=== PATIENT | female | born 1940 | race Caucasian/White ===

== ENCOUNTER 2016-11-01 09:16 | Inpatient (IN) | payer OTHER ==
[2016-11-01 09:39] LABS: BASOPHILS % (AUTO) 1 % (0-3); EOSINOPHILS % (AUTO) 1 % (0-9); HEMATOCRIT 34 % (35-47); MEAN CORPUSCULAR HGB CONC 34.8 gm/dl (32.0-36.0); MEAN CORPUSCULAR VOLUME 88 fL (81-99); MONOCYTES % (AUTO) 7.3 % (0-12); NEUTROPHILS % (AUTO) 84.9 % (37-80)
[2016-11-01] MEDS ORDERED: METOLAZONE 2.5 MG TAB PO ONE (09:41)
[2016-11-01] MEDS ORDERED: MORPHINE SULFATE 10 MG/ML SOL IV ONE (09:41)
[2016-11-01] MEDS ORDERED: FUROSEMIDE 40 MG SOL IV ONE (09:41)
[2016-11-01] MEDS ORDERED: FUROSEMIDE 40 MG SOL ONE (09:43)
[2016-11-01 09:51] LABS: ALBUMIN 3.1 gm/dl (3.4-5.0); CALCIUM 9.3 mg/dl (8.5-10.1); POTASSIUM 4.5 mMol/L (3.5-5.1)
[2016-11-01] MEDS ORDERED: MORPHINE SULFATE 10 MG/ML SOL ONE (09:57)
[2016-11-01] MEDS ORDERED: ALBUTEROL/IPRATROPIUM 1 VIAL SOL ONE (09:57)
[2016-11-01] MEDS ORDERED: ALBUTEROL/IPRATROPIUM 1 VIAL SOL INH ONE (09:57)
[2016-11-01 12:34] LABS: APPEARANCE,URINE Slightly Cloudy; BILIRUBIN,URINE NEGATIVE (NEGATIVE); GLUCOSE, URINE (UA) TRACE (NEGATIVE); KETONES,URINE NEGATIVE (NEGATIVE); LEUKOCYTE ESTERASE ,URINE NEGATIVE (NEGATIVE); NITRATE,URINE NEGATIVE (NEGATIVE); OCCULT BLOOD,URINE 1+ (NEG-TRACE); UROBILINOGEN,URINE 0.2 (0.2-1.0 EU)
[2016-11-01 12:52] LABS: COLOR,URINE YELLOW; RBC,URINE 0-1 (0-3AV/HPF); WBC,URINE 0-3 (0-5AV/HPF)
[2016-11-01 12:55] VITALS: BP 118/71; PULSE 102; O2SAT 97
[2016-11-01 13:43] VITALS: RESP 20; TEMP 98.4
[2016-11-01] MEDS ORDERED: HEPARIN SODIUM 5000 U/ML SOL IV ONE (14:21)
[2016-11-01] MEDS ORDERED: HEPARIN PREMIX 25,000 U/250 ML SOL IV SCH (14:30)
== END 2016-11-01 15:20 | disposition short-term general hospital (02) | DRG 293 ==
LOC: ED 09:16 → ACUTE CARE 12:24 → UNDOADMIN 12:24 → ACUTE CARE 12:50
PROVIDERS: ADMIT Family Medicine; ATTEND Family Medicine
DX: I50.9 Heart failure, unspecified (principal); I25.10 Atherosclerotic heart disease of native coronary artery without angina pectoris
CPT/HCPCS: 36415; 71010; 73130; 80053; 81001; 83880; 84484; 85025; 85378; 85610; 85730; 93005; 94640; 96374; 96375; 99284; 99285; J1644; J1940; J2270; J7620

== ENCOUNTER 2016-11-07 09:58 | Inpatient (IN) | payer OTHER ==
[2016-11-07] MEDS ORDERED: ALBUTEROL HFA 60 PUFF/INHALER INH PRN (17:05)
[2016-11-07] MEDS: DOCUSATE SODIUM 100 MG SGL PO SCH (20:47)
[2016-11-07] MEDS: AMIODARONE 200 MG TAB PO SCH (20:47)
[2016-11-07] MEDS: PRAVASTATIN SODIUM 20 MG TAB PO SCH (20:47)
[2016-11-07] MEDS: LEVEMIR PEN SC SCH (20:47)
[2016-11-07] MEDS: METOPROLOL SUCCINATE 50 MG ER TAB PO SCH (20:47)
[2016-11-08] MEDS: LOSARTAN POTASSIUM 50 MG TAB PO SCH (09:09)
[2016-11-08] MEDS: ASPIRIN EC 81 MG PO SCH (09:09)
[2016-11-08] MEDS: DOCUSATE SODIUM 100 MG SGL PO SCH ×2 (09:09→20:14)
[2016-11-08] MEDS: AMIODARONE 200 MG TAB PO SCH ×2 (09:09→20:13)
[2016-11-08] MEDS: GLIPIZIDE 5 MG TAB PO SCH (09:09)
[2016-11-08] MEDS: POLYETHYLENE GLYCOL 17 GM/1 TBS PDS PO SCH (09:09)
[2016-11-08] MEDS: METOPROLOL SUCCINATE 50 MG ER TAB PO SCH ×2 (09:09→20:14)
[2016-11-08] MEDS: POTASSIUM CHLORIDE 10 MEQ TER PO SCH (09:09)
[2016-11-08] MEDS: FUROSEMIDE 20 MG TAB PO SCH (09:09)
[2016-11-08] MEDS: MELOXICAM 15 MG TAB PO SCH ×2 (10:31→12:02)
[2016-11-08] MEDS: NOVOLOG FLEXPEN SC SCH ×2 (18:22→20:03)
[2016-11-08] MEDS: LEVEMIR PEN SC SCH (20:05)
[2016-11-08] MEDS: PRAVASTATIN SODIUM 20 MG TAB PO SCH (20:13)
[2016-11-09] MEDS: DOCUSATE SODIUM 100 MG SGL PO SCH ×2 (08:30→20:43)
[2016-11-09] MEDS: AMIODARONE 200 MG TAB PO SCH ×2 (08:30→20:40)
[2016-11-09] MEDS: GLIPIZIDE 5 MG TAB PO SCH (08:31)
[2016-11-09] MEDS: LOSARTAN POTASSIUM 50 MG TAB PO SCH (08:31)
[2016-11-09] MEDS: POTASSIUM CHLORIDE 10 MEQ TER PO SCH (08:31)
[2016-11-09] MEDS: FUROSEMIDE 20 MG TAB PO SCH (08:32)
[2016-11-09] MEDS: POLYETHYLENE GLYCOL 17 GM/1 TBS PDS PO SCH (08:32)
[2016-11-09] MEDS: MELOXICAM 15 MG TAB PO SCH (08:32)
[2016-11-09] MEDS: ASPIRIN EC 81 MG PO SCH (08:33)
[2016-11-09] MEDS: METOPROLOL SUCCINATE 50 MG ER TAB PO SCH ×2 (08:33→20:41)
[2016-11-09] MEDS: NOVOLOG FLEXPEN SC SCH ×4 (08:36→20:47)
[2016-11-09] MEDS: PRAVASTATIN SODIUM 20 MG TAB PO SCH (20:41)
[2016-11-09] MEDS: LEVEMIR PEN SC SCH (20:47)
[2016-11-10] MEDS: NOVOLOG FLEXPEN SC SCH (08:00)
[2016-11-10] MEDS: AMIODARONE 200 MG TAB PO SCH ×2 (08:06→21:52)
[2016-11-10] MEDS: LOSARTAN POTASSIUM 50 MG TAB PO SCH (08:07)
[2016-11-10] MEDS: ASPIRIN EC 81 MG PO SCH (08:07)
[2016-11-10] MEDS: DOCUSATE SODIUM 100 MG SGL PO SCH ×2 (08:07→21:19)
[2016-11-10] MEDS: POTASSIUM CHLORIDE 10 MEQ TER PO SCH (08:08)
[2016-11-10] MEDS: GLIPIZIDE 5 MG TAB PO SCH (08:08)
[2016-11-10] MEDS: MELOXICAM 15 MG TAB PO SCH (08:09)
[2016-11-10] MEDS: POLYETHYLENE GLYCOL 17 GM/1 TBS PDS PO SCH (08:09)
[2016-11-10] MEDS: FUROSEMIDE 20 MG TAB PO SCH (08:09)
[2016-11-10] MEDS: METOPROLOL SUCCINATE 50 MG ER TAB PO SCH ×2 (08:10→21:53)
[2016-11-10] MEDS: NOVOLOG 70/30 FLEXPEN SC SCH ×2 (09:59→17:42)
[2016-11-10] MEDS ORDERED: NOVOLOG FLEXPEN SC ONE (12:00)
[2016-11-10] MEDS: PRAVASTATIN SODIUM 20 MG TAB PO SCH (21:52)
[2016-11-11] MEDS: AMIODARONE 200 MG TAB PO SCH ×2 (08:31→20:33)
[2016-11-11] MEDS: LOSARTAN POTASSIUM 50 MG TAB PO SCH (08:32)
[2016-11-11] MEDS: DOCUSATE SODIUM 100 MG SGL PO SCH ×2 (08:32→20:34)
[2016-11-11] MEDS: POTASSIUM CHLORIDE 10 MEQ TER PO SCH (08:32)
[2016-11-11] MEDS: ASPIRIN EC 81 MG PO SCH (08:32)
[2016-11-11] MEDS: FUROSEMIDE 20 MG TAB PO SCH (08:33)
[2016-11-11] MEDS: POLYETHYLENE GLYCOL 17 GM/1 TBS PDS PO SCH (08:33)
[2016-11-11] MEDS: MELOXICAM 15 MG TAB PO SCH (08:33)
[2016-11-11] MEDS: METOPROLOL SUCCINATE 50 MG ER TAB PO SCH ×2 (08:34→20:34)
[2016-11-11] MEDS: NOVOLOG 70/30 FLEXPEN SC SCH ×2 (08:34→17:29)
[2016-11-11] MEDS: PRAVASTATIN SODIUM 20 MG TAB PO SCH (20:34)
[2016-11-12] MEDS: AMIODARONE 200 MG TAB PO SCH ×2 (08:26→21:41)
[2016-11-12] MEDS: FUROSEMIDE 20 MG TAB PO SCH (08:26)
[2016-11-12] MEDS: ASPIRIN EC 81 MG PO SCH (08:26)
[2016-11-12] MEDS: POTASSIUM CHLORIDE 10 MEQ TER PO SCH (08:26)
[2016-11-12] MEDS: DOCUSATE SODIUM 100 MG SGL PO SCH ×2 (08:26→21:41)
[2016-11-12] MEDS: POLYETHYLENE GLYCOL 17 GM/1 TBS PDS PO SCH (08:27)
[2016-11-12] MEDS: LOSARTAN POTASSIUM 50 MG TAB PO SCH (08:27)
[2016-11-12] MEDS: NOVOLOG 70/30 FLEXPEN SC SCH ×2 (08:28→17:21)
[2016-11-12] MEDS: MELOXICAM 15 MG TAB PO SCH (08:28)
[2016-11-12] MEDS: METOPROLOL SUCCINATE 50 MG ER TAB PO SCH ×2 (08:29→21:41)
[2016-11-12 08:43] VITALS: RESP 16; TEMP 97.9
[2016-11-12] MEDS: PRAVASTATIN SODIUM 20 MG TAB PO SCH (21:40)
[2016-11-13 07:35] VITALS: BP 148/68; PULSE 73; O2SAT 93
[2016-11-13] MEDS: AMIODARONE 200 MG TAB PO SCH (09:13)
[2016-11-13] MEDS: ASPIRIN EC 81 MG PO SCH (09:13)
[2016-11-13] MEDS: POLYETHYLENE GLYCOL 17 GM/1 TBS PDS PO SCH (09:13)
[2016-11-13] MEDS: DOCUSATE SODIUM 100 MG SGL PO SCH (09:13)
[2016-11-13] MEDS: LOSARTAN POTASSIUM 50 MG TAB PO SCH (09:14)
[2016-11-13] MEDS: FUROSEMIDE 20 MG TAB PO SCH (09:14)
[2016-11-13] MEDS: POTASSIUM CHLORIDE 10 MEQ TER PO SCH (09:14)
[2016-11-13] MEDS: MELOXICAM 15 MG TAB PO SCH (09:15)
[2016-11-13] MEDS: METOPROLOL SUCCINATE 50 MG ER TAB PO SCH (09:15)
[2016-11-13] MEDS: NOVOLOG 70/30 FLEXPEN SC SCH (09:17)
[2016-11-13] MEDS ORDERED: PNEUMOCOCCAL VACCINE 0.5 ML SOL IM ONE (14:23)
[2016-11-27] MEDS ORDERED: AMIODARONE 200 MG TAB PO SCH (09:00)
== END 2016-11-13 15:05 | disposition home or self-care (01) | DRG 292 ==
LOC: ACUTE CARE 15:59
PROVIDERS: ADMIT Family Medicine; ATTEND Family Medicine
PROC: F01ZDFZ Gait and/or Balance Assessment using Assistive, Adaptive, Supportive or Protective Equipment (ICD-10-PCS; principal; 2016-11-08)
PROC: F01ZBZZ Bed Mobility Assessment (ICD-10-PCS; 2016-11-08)
PROC: F01ZCZZ Transfer Assessment (ICD-10-PCS; 2016-11-08)
PROC: F02Z1ZZ Dressing Assessment (ICD-10-PCS; 2016-11-08)
PROC: F02Z0ZZ Bathing/Showering Assessment (ICD-10-PCS; 2016-11-08)
PROC: F02Z4ZZ Home Management Assessment (ICD-10-PCS; 2016-11-08)
DX: I50.22 Chronic systolic (congestive) heart failure (principal); I47.2 Ventricular tachycardia; I25.10 Atherosclerotic heart disease of native coronary artery without angina pectoris; E11.9 Type 2 diabetes mellitus without complications; Z79.4 Long term (current) use of insulin; I25.2 Old myocardial infarction; Z95.0 Presence of cardiac pacemaker
CPT/HCPCS: 82962; 90732; J1815

== ENCOUNTER 2016-12-21 06:36 | Emergency (ER) | payer OTHER ==
[2016-12-21 08:52] VITALS: BP 158/68; PULSE 92; RESP 20; TEMP 98.1; O2SAT 98
== END 2016-12-21 08:37 | disposition home or self-care (01) | DRG 392 ==
LOC: ED 06:36
DX: K59.00 Constipation, unspecified (principal)
CPT/HCPCS: 74020; 99282

== ENCOUNTER 2017-09-02 12:57 | Emergency (ER) | payer OTHER ==
[2017-09-02 13:06] VITALS: RESP 20; TEMP 97.1
[2017-09-02] MEDS ORDERED: ONDANSETRON HCL 4 MG/2 ML SOL IV ONE (13:24)
[2017-09-02] MEDS ORDERED: SODIUM CHLORIDE 0.9% 1000ML 1,000 ML IV SCH (13:30)
[2017-09-02 13:32] LABS: BASOPHILS % (AUTO) 1 % (0-3); EOSINOPHILS % (AUTO) 1 % (0-9); HEMATOCRIT 35 % (35-47); HEMOGLOBIN 11.6 gm/dl (12.0-15.5); LYMPHOCYTES % (AUTO) 15.4 % (10-50); MEAN CORPUSCULAR HEMOGLOBIN 30.3 pg (27.0-32.0); MEAN CORPUSCULAR HGB CONC 33.2 gm/dl (32.0-36.0); MEAN CORPUSCULAR VOLUME 91 fL (81-99); MONOCYTES % (AUTO) 7.1 % (0-12); NEUTROPHILS % (AUTO) 75.6 % (37-80)
[2017-09-02] MEDS ORDERED: ONDANSETRON HCL 4 MG/2 ML SOL ONE (13:34)
[2017-09-02 13:45] VITALS: PULSE 68
[2017-09-02 13:50] LABS: ALBUMIN 3.1 gm/dl (3.4-5.0); BILIRUBIN,TOTAL 0.5 mg/dl (0.2-1.0); CALCIUM 8.1 mg/dl (8.5-10.1); CARBON DIOXIDE 28.8 mEq/L (21-32); CREATININE 1.38 mg/dl (0.60-1.00); POTASSIUM 5.1 mMol/L (3.5-5.1); TOTAL PROTEIN 7.3 gm/dl (6.4-8.2)
[2017-09-02 17:20] VITALS: BP 124/48; O2SAT 94
== END 2017-09-02 16:27 | disposition home or self-care (01) | DRG 392 ==
LOC: ED 12:57
DX: K59.01 Slow transit constipation (principal); I50.9 Heart failure, unspecified; E83.51 Hypocalcemia; E88.09 Other disorders of plasma-protein metabolism, not elsewhere classified; E87.1 Hypo-osmolality and hyponatremia; R11.0 Nausea
CPT/HCPCS: 71045; 74019; 80053; 83880; 85025; 99285; J2405

== ENCOUNTER 2017-11-01 12:15 | Inpatient (IN) | payer OTHER ==
[2017-11-01] MEDS ORDERED: ALBUTEROL NEB SOL 2.5MG/3ML 1 VIAL SOL NEB PRN (12:19)
[2017-11-01] MEDS: SODIUM CHLORIDE 0.9% FLUSH 10 ML SOL IV SCH ×2 (13:00→21:20)
[2017-11-01] MEDS: ALBUTEROL/IPRATROPIUM 1 VIAL SOL INH SCH ×2 (13:25→19:07)
[2017-11-01] MEDS ORDERED: MECLIZINE HYDROCHLORIDE 12.5 MG TAB PO PRN (14:50)
[2017-11-01] MEDS ORDERED: SENNOSIDES A AND B 8.6 MG TAB PO PRN (14:50)
[2017-11-01] MEDS ORDERED: AZITHROMYCIN 250 MG TAB PO ONE (14:53)
[2017-11-01] MEDS ORDERED: LEVOFLOXACIN 500 MG (PREMIX) 500 MG/100 ML SOL IV SCH (15:00)
[2017-11-01] MEDS ORDERED: CEFTRIAXONE 1 GM (PREMIX) 1 GM/50 ML SOL IV SCH (15:00)
[2017-11-01] MEDS: SOLUMEDROL 125 MG/2 ML 125 MG/2 ML PDS IV SCH ×2 (15:08→21:19)
[2017-11-01] MEDS: FUROSEMIDE 40 MG SOL IV SCH ×2 (15:08→21:22)
[2017-11-01] MEDS ORDERED: CEFTRIAXONE 1 GM PDS ONE (15:17)
[2017-11-01] MEDS: POTASSIUM CHLORIDE 10 MEQ TER PO SCH (21:16)
[2017-11-01] MEDS: ASPIRIN EC 81 MG PO SCH (21:16)
[2017-11-01] MEDS: HUMALOG PEN 100 U/ML SC SCH (22:30)
[2017-11-02] MEDS: ALBUTEROL/IPRATROPIUM 1 VIAL SOL INH SCH ×4 (00:30→18:28)
[2017-11-02] MEDS: SODIUM CHLORIDE 0.9% FLUSH 10 ML SOL IV SCH ×3 (04:30→21:00)
[2017-11-02] MEDS: SOLUMEDROL 125 MG/2 ML 125 MG/2 ML PDS IV SCH ×4 (07:29→20:59)
[2017-11-02] MEDS: HUMALOG PEN 100 U/ML SC SCH ×5 (08:20→22:05)
[2017-11-02] MEDS: LEVEMIR PEN SC SCH (08:24)
[2017-11-02] MEDS ORDERED: METOPROLOL SUCCINATE 50 MG ER TAB ONE (08:29)
[2017-11-02] MEDS: LOSARTAN POTASSIUM 50 MG TAB PO SCH (08:34)
[2017-11-02] MEDS: GLIPIZIDE 5 MG TAB PO SCH (08:34)
[2017-11-02] MEDS: AZITHROMYCIN 250 MG TAB PO SCH (08:34)
[2017-11-02] MEDS: CETIRIZINE HYDROCHLORIDE 10 MG TAB PO SCH (08:34)
[2017-11-02] MEDS: METOPROLOL SUCCINATE 25 MG TAB.ER.24H PO SCH (08:35)
[2017-11-02] MEDS ORDERED: GLIPIZIDE 10 MG PO SCH (09:00)
[2017-11-02] MEDS: FUROSEMIDE 40 MG SOL IV SCH ×2 (09:58→15:01)
[2017-11-02] MEDS: FLUTICASONE PROPIONATE SPR NAS SCH (10:44)
[2017-11-02] MEDS ORDERED: CEFTRIAXONE 1 GM PDS ONE (13:58)
[2017-11-02] MEDS ORDERED: CEFTRIAXONE 1 GM PDS 1 GM in SODIUM CHLORIDE 0.9% 50 ML 50 ML IV ONE (14:01)
[2017-11-02] MEDS: ASPIRIN EC 81 MG PO SCH (21:04)
[2017-11-02] MEDS: POTASSIUM CHLORIDE 10 MEQ TER PO SCH (21:04)
[2017-11-03] MEDS: ALBUTEROL/IPRATROPIUM 1 VIAL SOL INH SCH ×7 (00:34→20:30)
[2017-11-03] MEDS: SOLUMEDROL 125 MG/2 ML 125 MG/2 ML PDS IV SCH ×2 (02:12→11:05)
[2017-11-03] MEDS: SODIUM CHLORIDE 0.9% FLUSH 10 ML SOL IV SCH ×4 (04:00→20:28)
[2017-11-03] MEDS: FUROSEMIDE 40 MG SOL IV SCH ×2 (06:56→15:45)
[2017-11-03 07:56] LABS: CALCIUM 9.1 mg/dl (8.5-10.1); CARBON DIOXIDE 29.7 mEq/L (21-32); CREATININE 1.31 mg/dl (0.60-1.00); POTASSIUM 4.2 mMol/L (3.5-5.1)
[2017-11-03 08:10] LABS: HEMATOCRIT 35 % (35-47); MEAN CORPUSCULAR HEMOGLOBIN 29.6 pg (27.0-32.0); MEAN CORPUSCULAR HGB CONC 33.8 gm/dl (32.0-36.0); MEAN CORPUSCULAR VOLUME 88 fL (81-99)
[2017-11-03 08:41] LABS: ANISOCYTOSIS SLIGHT; BAND NEUTROPHILS % (MANUAL) 0 %; BASOPHILS % (MANUAL) 0 % (0-3); EOSINOPHILS % (MANUAL) 0 % (0-9); LYMPHOCYTES % (MANUAL) 5 % (10-50); METAMYELOCYTES%(MANUAL) 1; MONOCYTES % (MANUAL) 5 % (0-12); NEUTROPHILS % (MANUAL) 89 % (37-80)
[2017-11-03] MEDS: HUMALOG PEN 100 U/ML SC SCH ×4 (08:50→20:32)
[2017-11-03] MEDS: LEVEMIR PEN SC SCH (08:54)
[2017-11-03] MEDS ORDERED: METOPROLOL SUCCINATE 50 MG ER TAB ONE (09:03)
[2017-11-03] MEDS: GLIPIZIDE 5 MG TAB PO SCH (09:07)
[2017-11-03] MEDS: LOSARTAN POTASSIUM 50 MG TAB PO SCH (09:07)
[2017-11-03] MEDS: METOPROLOL SUCCINATE 25 MG TAB.ER.24H PO SCH (09:08)
[2017-11-03] MEDS: AZITHROMYCIN 250 MG TAB PO SCH (09:09)
[2017-11-03] MEDS: CETIRIZINE HYDROCHLORIDE 10 MG TAB PO SCH (09:10)
[2017-11-03] MEDS: FLUTICASONE PROPIONATE SPR NAS SCH (09:14)
[2017-11-03] MEDS: PREDNISONE 20 MG TAB PO SCH (09:54)
[2017-11-03] MEDS ORDERED: POLYETHYLENE GLYCOL 17 GM/1 TBS PDS PO PRN (16:27)
[2017-11-03] MEDS: ASPIRIN EC 81 MG PO SCH (20:29)
[2017-11-03] MEDS: POTASSIUM CHLORIDE 10 MEQ TER PO SCH (20:29)
[2017-11-04] MEDS: FUROSEMIDE 40 MG SOL IV SCH (06:26)
[2017-11-04] MEDS: SODIUM CHLORIDE 0.9% FLUSH 10 ML SOL IV SCH (06:26)
[2017-11-04 07:25] LABS: CALCIUM 8.8 mg/dl (8.5-10.1); CREATININE 1.22 mg/dl (0.60-1.00); POTASSIUM 4.5 mMol/L (3.5-5.1)
[2017-11-04] MEDS: HUMALOG PEN 100 U/ML SC SCH (07:33)
[2017-11-04 07:44] VITALS: BP 138/74; TEMP 97.8
[2017-11-04] MEDS ORDERED: METOPROLOL SUCCINATE 50 MG TER PO SCH (09:00)
[2017-11-04] MEDS: GLIPIZIDE 5 MG TAB PO SCH (09:20)
[2017-11-04] MEDS: LEVEMIR PEN SC SCH (09:21)
[2017-11-04] MEDS: AZITHROMYCIN 250 MG TAB PO SCH (09:22)
[2017-11-04] MEDS: LOSARTAN POTASSIUM 50 MG TAB PO SCH (09:22)
[2017-11-04] MEDS: CETIRIZINE HYDROCHLORIDE 10 MG TAB PO SCH (09:22)
[2017-11-04] MEDS: PREDNISONE 20 MG TAB PO SCH (09:22)
[2017-11-04] MEDS: FLUTICASONE PROPIONATE SPR NAS SCH (09:22)
[2017-11-04] MEDS: ALBUTEROL/IPRATROPIUM 1 VIAL SOL INH SCH (09:25)
[2017-11-04 11:32] VITALS: PULSE 87; RESP 20; O2SAT 92
== END 2017-11-04 11:25 | disposition home or self-care (01) | DRG 206 ==
LOC: ACUTE CARE 12:20
PROVIDERS: ADMIT Family Medicine; ATTEND Family Medicine
DX: R09.02 Hypoxemia (principal); I50.9 Heart failure, unspecified; J90 Pleural effusion, not elsewhere classified; E11.9 Type 2 diabetes mellitus without complications; J44.9 Chronic obstructive pulmonary disease, unspecified; Z79.4 Long term (current) use of insulin
CPT/HCPCS: 36415; 80048; 82962; 83880; 84484; 85007; 85027; 93005; 93012; 94150; 94640; 94664; 94762; 99222; 99232; J0696; J1815; J1940; J2930; J7613; A9270-GY

== ENCOUNTER 2018-07-25 02:53 | Emergency (ER) | payer OTHER ==
[2018-07-25] MEDS ORDERED: ALBUTEROL/IPRATROPIUM 1 VIAL SOL INH ONE ×2 (03:00→03:56)
[2018-07-25] MEDS ORDERED: ALBUTEROL/IPRATROPIUM 1 VIAL SOL ONE ×2 (03:01→03:59)
[2018-07-25 03:14] VITALS: RESP 24; TEMP 96.4
[2018-07-25] MEDS ORDERED: AZITHROMYCIN 250 MG TAB PO ONE (03:57)
[2018-07-25] MEDS ORDERED: SOLUMEDROL 125 MG/2 ML 125 MG/2 ML PDS IM ONE (03:57)
[2018-07-25] MEDS ORDERED: SOLUMEDROL 125 MG/2 ML 125 MG/2 ML PDS ONE (03:59)
[2018-07-25] MEDS ORDERED: AZITHROMYCIN 250 MG TAB ONE (04:01)
[2018-07-25 04:11] VITALS: PULSE 82; O2SAT 90
[2018-07-25 04:28] VITALS: BP 129/77
== END 2018-07-25 04:34 | disposition home or self-care (01) | DRG 192 ==
LOC: ED 02:53
DX: J44.1 Chronic obstructive pulmonary disease with (acute) exacerbation (principal); E11.9 Type 2 diabetes mellitus without complications; I10 Essential (primary) hypertension; I25.10 Atherosclerotic heart disease of native coronary artery without angina pectoris; Z95.0 Presence of cardiac pacemaker; R06.02 Shortness of breath
CPT/HCPCS: 36415; 71045; 80053; 83880; 84484; 85025; 99284; J2930; A9270-GY

== ENCOUNTER 2018-07-25 11:12 | Inpatient (IN) | payer OTHER ==
[2018-07-25 03:42] LABS: BASOPHILS % (AUTO) 1 % (0-3); EOSINOPHILS % (AUTO) 3 % (0-9); HEMATOCRIT 35 % (35-47); HEMOGLOBIN 11.6 gm/dl (12.0-15.5); LYMPHOCYTES % (AUTO) 11.5 % (10-50); MEAN CORPUSCULAR HGB CONC 33.5 gm/dl (32.0-36.0); MEAN CORPUSCULAR VOLUME 96 fL (81-99); MONOCYTES % (AUTO) 9.6 % (0-12); NEUTROPHILS % (AUTO) 75.4 % (37-80)
[2018-07-25 03:43] LABS: ALBUMIN 3.5 gm/dl (3.4-5.0); BILIRUBIN,TOTAL 0.4 mg/dl (0.2-1.0); CALCIUM 8.2 mg/dl (8.5-10.1); CARBON DIOXIDE 31.9 mEq/L (21-32); CREATININE 1.17 mg/dl (0.60-1.00); POTASSIUM 4.2 mMol/L (3.5-5.1); TOTAL PROTEIN 7.4 gm/dl (6.4-8.2)
[2018-07-25] MEDS ORDERED: ALBUTEROL/IPRATROPIUM 1 VIAL SOL ONE ×2 (11:24→12:39)
[2018-07-25] MEDS ORDERED: SOLUMEDROL 125 MG/2 ML 125 MG/2 ML PDS ONE (11:24)
[2018-07-25] MEDS ORDERED: SOLUMEDROL 125 MG/2 ML 125 MG/2 ML PDS IV ONE (11:26)
[2018-07-25] MEDS ORDERED: ALBUTEROL/IPRATROPIUM 1 VIAL SOL INH ONE ×2 (11:26→12:33)
[2018-07-25] MEDS: SODIUM CHLORIDE 0.9% FLUSH 10 ML SOL IV PRN ×2 (12:05→18:52)
[2018-07-25] MEDS ORDERED: FUROSEMIDE 20mg SOL IV ONE (12:33)
[2018-07-25] MEDS ORDERED: FUROSEMIDE 20mg SOL ONE (12:39)
[2018-07-25] MEDS ORDERED: ALBUTEROL HFA 60 PUFF/INHALER INH PRN (14:11)
[2018-07-25] MEDS: SOLUMEDROL 125 MG/2 ML 125 MG/2 ML PDS IV SCH ×2 (18:51→23:17)
[2018-07-25] MEDS ORDERED: ASPIRIN EC 81 MG PO SCH (21:00)
[2018-07-25] MEDS ORDERED: POTASSIUM CHLORIDE 10 MEQ TER PO SCH (21:00)
[2018-07-25] MEDS: NOVOLOG FLEXPEN SC SCH (21:28)
[2018-07-25] MEDS: ALBUTEROL NEB SOL 2.5MG/3ML 1 VIAL SOL INH PRN (23:15)
[2018-07-26] MEDS: SOLUMEDROL 125 MG/2 ML 125 MG/2 ML PDS IV SCH (06:12)
[2018-07-26] MEDS: SODIUM CHLORIDE 0.9% FLUSH 10 ML SOL IV PRN ×2 (06:12→10:27)
[2018-07-26 07:39] LABS: BASOPHILS % (AUTO) 0 % (0-3); EOSINOPHILS % (AUTO) 0 % (0-9); HEMATOCRIT 35 % (35-47); HEMOGLOBIN 11.5 gm/dl (12.0-15.5); LYMPHOCYTES % (AUTO) 4.3 % (10-50); MEAN CORPUSCULAR HEMOGLOBIN 31.5 pg (27.0-32.0); MEAN CORPUSCULAR HGB CONC 32.7 gm/dl (32.0-36.0); MEAN CORPUSCULAR VOLUME 96 fL (81-99); NEUTROPHILS % (AUTO) 92.4 % (37-80)
[2018-07-26 07:46] VITALS: BP 142/74; TEMP 97.9
[2018-07-26 07:50] LABS: CALCIUM 8.4 mg/dl (8.5-10.1); CREATININE 1.18 mg/dl (0.60-1.00); POTASSIUM 4.3 mMol/L (3.5-5.1)
[2018-07-26] MEDS: ALBUTEROL NEB SOL 2.5MG/3ML 1 VIAL SOL INH PRN (07:55)
[2018-07-26 07:59] VITALS: RESP 24
[2018-07-26] MEDS: NOVOLOG FLEXPEN SC SCH (08:21)
[2018-07-26] MEDS ORDERED: GLIPIZIDE 5 MG TAB PO SCH (09:00)
[2018-07-26] MEDS ORDERED: AZITHROMYCIN 500 MG PDS IV ONE (09:00)
[2018-07-26] MEDS ORDERED: LOSARTAN POTASSIUM 50 MG TAB PO SCH (09:00)
[2018-07-26] MEDS ORDERED: LEVEMIR PEN SC SCH (09:00)
[2018-07-26] MEDS ORDERED: AMIODARONE 200 MG TAB PO SCH (09:00)
[2018-07-26] MEDS ORDERED: FUROSEMIDE 20 MG TAB PO SCH (09:00)
[2018-07-26] MEDS ORDERED: FUROSEMIDE 20mg SOL IV ONE (09:00)
[2018-07-26] MEDS ORDERED: ALBUTEROL/IPRATROPIUM 1 VIAL SOL INH SCH (09:45)
[2018-07-26 10:27] VITALS: PULSE 88; O2SAT 96
[2018-07-27] MEDS ORDERED: FUROSEMIDE 40 MG SOL IV SCH (10:15)
== END 2018-07-26 11:20 | disposition short-term general hospital (02) | DRG 190 ==
LOC: ED 11:12 → ACUTE CARE 13:28 → UNDOADMIN 13:28 → ACUTE CARE 13:45
PROVIDERS: ADMIT Family Medicine; ATTEND Family Medicine
DX: J44.1 Chronic obstructive pulmonary disease with (acute) exacerbation (principal); I21.4 Non-ST elevation (NSTEMI) myocardial infarction; I50.22 Chronic systolic (congestive) heart failure; R06.02 Shortness of breath; E11.9 Type 2 diabetes mellitus without complications; I10 Essential (primary) hypertension; R05 Cough; I25.10 Atherosclerotic heart disease of native coronary artery without angina pectoris; Z95.0 Presence of cardiac pacemaker; Z79.4 Long term (current) use of insulin
CPT/HCPCS: 36415; 71045; 80048; 80053; 82962; 83880; 84484; 85025; 93005; 94760; 96372; 96374; 96375; 99222; 99284; J0456; J1815; J1940; J2930; J7613; A9270-GY

== ENCOUNTER 2018-10-26 01:58 | Emergency (ER) | payer OTHER ==
[2018-10-26] MEDS ORDERED: ASPIRIN 81 MG CHEWABLE CTB PO ONE (02:12)
[2018-10-26] MEDS ORDERED: ALBUTEROL NEB SOL 2.5MG/3ML 1 VIAL SOL NEB ONE (02:13)
[2018-10-26] MEDS ORDERED: SODIUM CHLORIDE 0.9% 1000ML 1,000 ML IV SCH (02:15)
[2018-10-26 02:19] VITALS: TEMP 97.1
[2018-10-26] MEDS ORDERED: ASPIRIN 81 MG CHEWABLE CTB ONE (02:22)
[2018-10-26] MEDS ORDERED: ALBUTEROL/IPRATROPIUM 1 VIAL SOL ONE (02:22)
[2018-10-26 02:25] LABS: BASOPHILS % (AUTO) 2 % (0-3); EOSINOPHILS % (AUTO) 5 % (0-9); HEMATOCRIT 36 % (35-47); HEMOGLOBIN 11.8 gm/dl (12.0-15.5); LYMPHOCYTES % (AUTO) 25.5 % (10-50); MEAN CORPUSCULAR HEMOGLOBIN 31.2 pg (27.0-32.0); MEAN CORPUSCULAR HGB CONC 33.1 gm/dl (32.0-36.0); MEAN CORPUSCULAR VOLUME 94 fL (81-99); MONOCYTES % (AUTO) 9.7 % (0-12); NEUTROPHILS % (AUTO) 57.7 % (37-80)
[2018-10-26] MEDS ORDERED: ALBUTEROL/IPRATROPIUM 1 VIAL SOL INH ONE (02:25)
[2018-10-26 02:40] LABS: ALBUMIN 3.5 gm/dl (3.4-5.0); ALKALINE PHOSPHATASE 69 IU/L (46-116); ALT 17 IU/L (14-63); AST 11 IU/L (15-37); BILIRUBIN,TOTAL 0.2 mg/dl (0.2-1.0); BLOOD UREA NITROGEN 36 mg/dl (7-18); CALCIUM 8.7 mg/dl (8.5-10.1); CARBON DIOXIDE 31.2 mEq/L (21-32); CHLORIDE 100 mMol/L (98-107); CREATININE 1.69 mg/dl (0.60-1.00); GLUCOSE 398 mg/dl (74-106); MAGNESIUM 2.4 mg/dl (1.8-2.4); POTASSIUM 4.9 mMol/L (3.5-5.1); TOTAL PROTEIN 7.3 gm/dl (6.4-8.2); TROP I < 0.017 ng/ml (0.000-0.056)
[2018-10-26 02:45] LABS: SODIUM 137 mMol/L (136-145)
[2018-10-26 03:00] LABS: APPEARANCE,URINE Slightly Cloudy; BILIRUBIN,URINE NEGATIVE (NEGATIVE); COLOR,URINE Light yellow; GLUCOSE, URINE (UA) 2+ (NEGATIVE); KETONES,URINE NEGATIVE (NEGATIVE); LEUKOCYTE ESTERASE ,URINE 2+ (NEGATIVE); NITRATE,URINE POSITIVE (NEGATIVE); OCCULT BLOOD,URINE TRACE LYSED (NEG-TRACE); PH,URINE 5.5; UROBILINOGEN,URINE 0.2 (0.2-1.0 EU)
[2018-10-26 03:10] LABS: BACTERIA 3+ (< 1+); CRYSTALS NEGATIVE (0-3 AVE/HPF); EPITHELIAL CELLS 0-2 (SQUAMOUS); WBC,URINE 80-100 (0-5AV/HPF)
[2018-10-26] MEDS ORDERED: CEPHALEXIN 250 MG/5 ML BOTTLE PO ONE (03:34)
[2018-10-26 04:20] VITALS: PULSE 75; O2SAT 94
[2018-10-26 04:21] VITALS: BP 167/60; RESP 17
== END 2018-10-26 04:08 | disposition home or self-care (01) | DRG 313 ==
LOC: ED 01:58
DX: R07.9 Chest pain, unspecified (principal); T82.119A Breakdown (mechanical) of unspecified cardiac electronic device, initial encounter; N39.0 Urinary tract infection, site not specified; R06.2 Wheezing
CPT/HCPCS: 36415; 71045; 80053; 81001; 83735; 83880; 84484; 85025; 87077; 87088; 87186; 93005; 96365; 96366; 99284; 99285; J7613; A9270-GY